=== PATIENT | female | born 1965 | race African-American/Black ===

== ENCOUNTER 2017-05-21 10:09 | Emergency (ER) | payer SELFPAY ==
[2017-05-21 11:45] LABS: INFLUENZA A PATIENT NEGATIVE (NEGATIVE)
[2017-05-21 11:50] LABS: INFLUENZA B PATIENT POSITIVE (NEGATIVE); OBC FLU VALID
[2017-05-21 12:02] LABS: BACTERIA,URINE 0 /HPF (0-FEW); BILIRUBIN,URINE NEGATIVE (NEG); CLARITY,URINE CLEAR; COLOR,URINE YELLOW; GLUCOSE,URINE NEGATIVE (NEG); NITRITE,URINE NEGATIVE (NEG); PROTEIN,URINE 30 mg/dL (NEG-TRACE); UROBILINOGEN,URINE 0.2 mg/dL (0.2 mg/dL); WBC,URINE 0 /HPF (0-4)
[2017-05-21 12:03] LABS: RBC,URINE RARE /HPF (0-2); SQUAMOUS EPITHELIAL CELL,UR MOD /LPF
== END 2017-05-21 12:22 | disposition home or self-care (01) ==
LOC: ER 10:09
DX: J10.1 Influenza due to other identified influenza virus with other respiratory manifestations (principal); Z88.1 Allergy status to other antibiotic agents
CPT/HCPCS: 81001; 87804; 87804-59; 99284

== ENCOUNTER 2019-03-09 12:13 | Emergency (ER) | payer SELFPAY ==
[~2019-03-09] VITALS: Ht 175.3 cm; Wt 72.6 kg
[~2019-03-09 12:13] MED LIST: ONDA4TAB10 SL; OSEL75CA PO
[2019-03-09] MEDS ORDERED: IV NORMAL SALINE 1000ML BAG 1,000 ML IV SCH (12:25)
--- NOTE | 2019-03-09 12:31 | PHYS DOC ---
Past Medical History Past Medical History: No Pertinent History Past Surgical History: No Surgical History Smoking: Cigarettes Alcohol Use: None Drug Use: None Adult General Chief Complaint Chief Complaint: MULTIPLE COMPLAINTS HPI HPI Patient is a 53-year-old female who presents to the emergency department for evaluation of multiple medical complaints. She states that yesterday evening she began having some spasm and pain in her right hand and could not move her hand due to the pain. She states that today she awakened in her entire right side of her body was hurting. She states the pain is in her right hip, leg, arm, and she has a generalized headache. She also has some sharp anterior chest pain which is worse with movement and palpation. She denies any pleuritic pain. She is somewhat tearful, and admits to being under a lot of stress related to family issues. She has not had any exertional chest pain or pleuritic pain. She denies any dizziness or lightheadedness, numbness or focal weakness. There are no alleviating or exacerbating factors to her symptoms. Review of Systems Review of Systems Constitutional: Denies fever or chills [] Eyes: Denies change in visual acuity, redness, or eye pain [] HENT: Denies nasal congestion or sore throat [] Respiratory: Denies cough or shortness of breath [] Cardiovascular: No additional information not addressed in HPI [] GI: Denies abdominal pain, nausea, vomiting, bloody stools or diarrhea [] : Denies dysuria or hematuria [] Musculoskeletal: Denies back pain or joint pain, other than as noted in the history of present illness [] Integument: Denies rash or skin lesions [] Neurologic: Denies focal weakness or sensory changes [] Endocrine: Denies polyuria or polydipsia [] All other systems were reviewed and found to be within normal limits, except as documented in this note. Current Medications Current Medications Current Medications Medications (Trade) Dose Ordered Sig/Yolande Start Time Stop Time Status Last Admin Dose Admin Aspirin (Children'S Aspirin) 324 mg 1X ONCE 03/09/19 13:00 03/09/19 13:01 DC 03/09/19 12:52 324 MG Iohexol (Omnipaque 350 Mg/ml) 100 ml 1X ONCE 03/09/19 13:30 03/09/19 13:31 DC 03/09/19 13:32 100 ML Lorazepam (Ativan Inj) 1 mg 1X ONCE 03/09/19 13:00 03/09/19 13:01 DC 03/09/19 12:52 1 MG Sodium Chloride 1,000 ml @ 1,000 mls/hr Q1H 03/09/19 12:25 03/09/19 13:24 DC 03/09/19 12:51 1,000 MLS/HR Allergies Allergies Allergies Coded Allergies Type Severity Reaction Last Updated Verified amoxicillin Allergy Intermediate Hives 05/21/17 Yes Physical Exam Physical Exam PHYSICAL EXAM: CONSTITUTIONAL: Well developed, well nourished HEAD: normocephalic, atraumatic EENT: PERRL, EOMI. Conjunctivae normal color, sclerae non-icteric; moist mucous membranes. NECK: Supple, non-tender; no meningismus. LUNGS: Lungs CTA, breathing even and unlabored. Normal air movement. HEART: Regular rate and rhythm, no murmur CHEST: No deformity. Palpation of the anterior chest wall reproduces the patient's pain. ABDOMEN: The abdomen is soft, and non-tender, no masses or bruits. EXTREM: Normal ROM; no deformity, no calf tenderness. Normal pulses palpable in all extremities. There is no pedal edema. SKIN: No rash; no diaphoresis NEURO: Alert; normal speech and cognition; CN's grossly intact; strength grossly intact without focal deficit. Ewwxry-qvtt-fwxhrh and heel zee testing is normal. Visual armstrong are intact by confrontation. BACK: No CVA TTP. PSYCHIATRIC: The patient is tearful, exhibits a moderately anxious affect. Current Patient Data Vital Signs Vital Signs Date Time Temp Pulse Resp B/P (MAP) Pulse Ox O2 Delivery O2 Flow Rate FiO2 03/09/19 12:20 98.6 93 17 143/92 (109) 96 98.6 Lab Values Laboratory Tests Test 03/09/19 12:33 White Blood Count 4.5 x10^3/uL (4.0-11.0) Red Blood Count 3.84 x10^6/uL (3.50-5.40) Hemoglobin 12.8 g/dL (12.0-15.5) Hematocrit 37.1 % (36.0-47.0) Mean Corpuscular Volume 97 fL (79-100) Mean Corpuscular Hemoglobin 33 pg (25-35) Mean Corpuscular Hemoglobin Concent 35 g/dL (31-37) Red Cell Distribution Width 14.1 % (11.5-14.5) Platelet Count 254 x10^3/uL (140-400) Neutrophils (%) (Auto) 47 % (31-73) Lymphocytes (%) (Auto) 44 % (24-48) Monocytes (%) (Auto) 7 % (0-9) Eosinophils (%) (Auto) 1 % (0-3) Basophils (%) (Auto) 1 % (0-3) Neutrophils # (Auto) 2.1 x10^3/uL (1.8-7.7) Lymphocytes # (Auto) 2.0 x10^3/uL (1.0-4.8) Monocytes # (Auto) 0.3 x10^3/uL (0.0-1.1) Eosinophils # (Auto) 0.1 x10^3/uL (0.0-0.7) Basophils # (Auto) 0.0 x10^3/uL (0.0-0.2) Erythrocyte Sedimentation Rate 27 (0-25) H Prothrombin Time 13.4 SEC (11.7-14.0) Prothrombin Time INR 1.1 (0.8-1.1) D-Dimer (Jazmin) 0.94 ug/mlFEU (0.00-0.50) H Sodium Level 138 mmol/L (136-145) Potassium Level 4.3 mmol/L (3.5-5.1) Chloride Level 102 mmol/L (98-107) Carbon Dioxide Level 24 mmol/L (21-32) Anion Gap 12 (6-14) Blood Urea Nitrogen 13 mg/dL (7-20) Creatinine 1.0 mg/dL (0.6-1.0) Estimated GFR (Cockcroft-Gault) 70.7 BUN/Creatinine Ratio 13 (6-20) Glucose Level 85 mg/dL (70-99) Calcium Level 9.6 mg/dL (8.5-10.1) Magnesium Level 1.8 mg/dL (1.8-2.4) Total Bilirubin 0.3 mg/dL (0.2-1.0) Aspartate Amino Transferase (AST) 17 U/L (15-37) Alanine Aminotransferase (ALT) 9 U/L (14-59) L Alkaline Phosphatase 76 U/L (46-116) Troponin I Quantitative < 0.017 ng/mL (0.000-0.055) C-Reactive Protein, Quantitative Pending XK-Qah-V-Type Natriuretic Peptide 11 pg/mL (0-124) Total Protein 8.7 g/dL (6.4-8.2) H Albumin 4.3 g/dL (3.4-5.0) Albumin/Globulin Ratio 1.0 (1.0-1.7) Lipase 184 U/L (73-393) Thyroid Stimulating Hormone (TSH) 0.438 uIU/mL (0.358-3.74) Laboratory Tests 03/09/19 12:33 Laboratory Tests 03/09/19 12:33 EKG EKG []Normal sinus rhythm at a rate of 80 beats for minute, normal axis, normal intervals, there are no acute ischemic ST/T changes. Radiology/Procedures Radiology/Procedures PROCEDURE: PORTABLE CHEST 1V EXAM: Chest, single view. HISTORY: Chest pain. COMPARISON: None. FINDINGS: A frontal view of the chest is obtained. There is no infiltrate, pleural effusion or pneumothorax. There is a prominent cardiac silhouette, a component of which is likely due to portable technique. IMPRESSION: No acute pulmonary finding. [] PROCEDURE: CT HEAD WO CONTRAST CT HEAD WO CONTRAST Indication: Headache. Exposure: One or more of the following individualized dose reduction techniques were utilized for this examination: 1. Automated exposure control 2. Adjustment of the mA and/or kV according to patient size 3. Use of iterative reconstruction technique. Technique: Standard imaging without intravenous contrast. No evidence of acute intracranial hemorrhage, mass effect, midline shift or abnormal extra-axial fluid collection. Freitas-white matter distinction is intact. Ventricles and sulci appear unremarkable. The partially visualized sinuses are clear. Mastoids and auditory canals are grossly clear. No evidence of acute skull abnormality. No large scalp hematoma. Orbits appear unremarkable. IMPRESSION: No evidence of acute intracranial hemorrhage or mass effect. If headaches persist, consider outpatient MR brain. PROCEDURE: CT ANGIOGRAPHY CHEST CT angiography chest with contrast PQRS statement: CT scans at this facility use dose reduction including either automated exposure control, iterative reconstructions, and /or weight based radiation dosing via mA and kV modification when appropriate to reduce radiation dose to as low as reasonably achievable. HISTORY: Chest pain, elevated d-dimer. TECHNIQUE: Helical CT imaging the chest with 3-D MIP reconstructions of the pulmonary arteries to assess for emboli with 90 mL Omnipaque 350 intravenous contrast. FINDINGS: No pulmonary artery emboli. Heart size normal. Thoracic aorta and esophagus are unremarkable. No adenopathy in the chest. No pulmonary opacities or nodules. No pleural effusions. Thin linear discoid atelectasis right middle lobe. Thoracic scoliosis. IMPRESSION: No acute process. No pulmonary artery emboli. Course & Med Decision Making Course & Med Decision Making Pertinent Labs and Imaging studies reviewed. (See chart for details) []2:50 PM: The patient's condition remains stable. She is feeling better at this time and she is ambulatory. She does complain of some right lateral thigh pain at this time, she has no medial pain, and her symptoms are not highly suggestive of a DVT, she has no calf tenderness, or significant edema noted. Her pain is consistent with musculoskeletal pain. I discussed overnight observation for more definitive cardiac or neurological evaluation, clinical suspicion of which is extremely low, but the patient declined this time. The importance of close follow-up was discussed in detail. I discussed the use of heat, NSAIDs, and return precautions were also explicitly discussed. Dragon Disclaimer Dragon Disclaimer This electronic medical record was generated, in whole or in part, using a voice recognition dictation system. Departure Departure Impression: Primary Impression: Musculoskeletal leg pain Additional Impression: Atypical chest pain Disposition: 01 HOME, SELF-CARE Condition: STABLE Referrals: RADHA VILLELA MD (PCP) Patient Instructions: Chest Pain (Nonspecific), Musculoskeletal Pain Additional Instructions: Ibuprofen 400-600 mg every 6 hours may help improve your symptoms. Applying a heating pad to the affected area may help improve your symptoms. Pepcid AC twice daily, as well as taking ibuprofen with food, may help improve or prevent stomach problems for pain which might be exacerbated by taking ibuprofen. Problem Qualifiers NAOMY CHILDRESS MD Mar 09, 2019 12:31
[2019-03-09 12:52] LABS: PROTHROMBIN TIME PATIENT 13.4 SEC (11.7-14.0)
[2019-03-09 12:58] LABS: BASO % 1 % (0-3); EOS # 0.1 x10^3/uL (0.0-0.7); EOS % 1 % (0-3); HEMATOCRIT 37.1 % (36.0-47.0); HEMOGLOBIN 12.8 g/dL (12.0-15.5); LYMPH % 44 % (24-48); MEAN CORPUSCULAR HEMOGLOBIN 33 pg (25-35); MEAN CORPUSCULAR HGB CONC 35 g/dL (31-37); MEAN CORPUSCULAR VOLUME 97 fL (79-100); MONO # 0.3 x10^3/uL (0.0-1.1); MONO % 7 % (0-9); NEUT # 2.1 x10^3/uL (1.8-7.7); NEUT % 47 % (31-73); PLATELET COUNT 254 x10^3/uL (140-400); RED BLOOD COUNT 3.84 x10^6/uL (3.50-5.40); RED CELL DISTRIBUTION WIDTH 14.1 % (11.5-14.5); WHITE BLOOD COUNT 4.5 x10^3/uL (4.0-11.0)
[2019-03-09 12:59] LABS: ANION GAP 12 (6-14); BLOOD UREA NITROGEN 13 mg/dL (7-20); BUN/CREATININE RATIO 13 (6-20); CALCIUM 9.6 mg/dL (8.5-10.1); CARBON DIOXIDE 24 mmol/L (21-32); CHLORIDE 102 mmol/L (98-107); GFR 70.7; GLUCOSE 85 mg/dL (70-99); POTASSIUM 4.3 mmol/L (3.5-5.1); SODIUM 138 mmol/L (136-145)
[2019-03-09] MEDS ORDERED: ASPIRIN CHEWABLE 81 MG TABLET. PO ONE (13:00)
--- NOTE | 2019-03-09 13:01 | RAD ---
CT HEAD WO CONTRAST Indication: Headache. Exposure: One or more of the following individualized dose reduction techniques were utilized for this examination: 1. Automated exposure control 2. Adjustment of the mA and/or kV according to patient size 3. Use of iterative reconstruction technique. Technique: Standard imaging without intravenous contrast. No evidence of acute intracranial hemorrhage, mass effect, midline shift or abnormal extra-axial fluid collection. Freitas-white matter distinction is intact. Ventricles and sulci appear unremarkable. The partially visualized sinuses are clear. Mastoids and auditory canals are grossly clear. No evidence of acute skull abnormality. No large scalp hematoma. Orbits appear unremarkable. IMPRESSION: No evidence of acute intracranial hemorrhage or mass effect. If headaches persist, consider outpatient MR brain. Electronically signed by: Harsh Nicholson MD (03/09/2019 12:58 PM) [id number]
[2019-03-09 13:02] LABS: D-DIMER 0.94 ug/mlFEU (0.00-0.50)
[2019-03-09 13:03] LABS: ALBUMIN 4.3 g/dL (3.4-5.0); ALK PHOS 76 U/L (46-116); ALT (SGPT) 9 U/L (14-59); AST (SGOT) 17 U/L (15-37); LIPASE 184 U/L (73-393); MAGNESIUM 1.8 mg/dL (1.8-2.4); TOTAL BILIRUBIN 0.3 mg/dL (0.2-1.0); TOTAL PROTEIN 8.7 g/dL (6.4-8.2)
--- NOTE | 2019-03-09 13:03 | RAD ---
EXAM: Chest, single view. HISTORY: Chest pain. COMPARISON: None. FINDINGS: A frontal view of the chest is obtained. There is no infiltrate, pleural effusion or pneumothorax. There is a prominent cardiac silhouette, a component of which is likely due to portable technique. IMPRESSION: No acute pulmonary finding. Electronically signed by: Kirti Zapien MD (03/09/2019 1:00 PM) [id number]
[2019-03-09] MEDS ORDERED: IOHEXOL 350 MG/ML 100 ML VIAL. IV ONE (13:30)
--- NOTE | 2019-03-09 13:58 | RAD ---
CT angiography chest with contrast PQRS statement: CT scans at this facility use dose reduction including either automated exposure control, iterative reconstructions, and /or weight based radiation dosing via mA and kV modification when appropriate to reduce radiation dose to as low as reasonably achievable. HISTORY: Chest pain, elevated d-dimer. TECHNIQUE: Helical CT imaging the chest with 3-D MIP reconstructions of the pulmonary arteries to assess for emboli with 90 mL Omnipaque 350 intravenous contrast. FINDINGS: No pulmonary artery emboli. Heart size normal. Thoracic aorta and esophagus are unremarkable. No adenopathy in the chest. No pulmonary opacities or nodules. No pleural effusions. Thin linear discoid atelectasis right middle lobe. Thoracic scoliosis. IMPRESSION: No acute process. No pulmonary artery emboli. Electronically signed by: Tito Gill MD (03/09/2019 1:55 PM) [facility]
--- NOTE | 2019-03-09 14:16 | EKG ---
[facility] [address] [place] [address] Test Date: 2019-03-09 Test Time: 12:22:50 Pat Name: KAMI CONNELLY Department: Room: Gender: F Front Office Attendant: : 1965 Requested By: NAOMY CHILDRESS Order Number: [id number] Reading MD: Bret Junior MD Measurements Intervals Pyote Rate: 87 P: 66 AL: 114 QRS: 28 QRSD: 76 T: 33 QT: 340 QTc: 414 Interpretive Statements SINUS RHYTHM NON-SPECIFIC ST/T CHANGES Electronically Signed On 03-09-2019 15:14:05 SUPPLY CHAIN LOGISTICS MANAGER by Bret Junior MD
[2019-03-09 14:40] VITALS: BP 107/63
[2019-03-09 16:40] LABS: C-REACTIVE PROTEIN < 0.5 mg/L (0-3.3)
== END 2019-03-09 15:05 | disposition home or self-care (01) ==
LOC: ER 12:13
DX: R07.89 Other chest pain (principal); M79.604 Pain in right leg; R51 Headache; M79.641 Pain in right hand; M25.551 Pain in right hip; F17.210 Nicotine dependence, cigarettes, uncomplicated; Z88.1 Allergy status to other antibiotic agents
CPT/HCPCS: 36415; 70450; 71045; 71275; 80053; 83690; 83735; 83880; 84443; 84484; 85025; 85379; 85610; 85651; 86140; 93005; 96374; 99285; J2060; J7030; Q9967

== ENCOUNTER 2020-05-22 13:39 | Emergency (ER) | payer SELFPAY ==
[~2020-05-22] VITALS: Ht 175.3 cm; Wt 72.0 kg
[2020-05-22 14:00] VITALS: BP 104/69
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
== END 2020-05-22 14:25 | disposition left against medical advice (07) ==
LOC: ER 13:39
DX: L25.9 Unspecified contact dermatitis, unspecified cause (principal); F17.200 Nicotine dependence, unspecified, uncomplicated; Z88.1 Allergy status to other antibiotic agents
CPT/HCPCS: 99281

== ENCOUNTER 2021-07-01 16:32 | Emergency (ER) | payer MEDICAID ==
[~2021-07-01] VITALS: Ht 175.3 cm; Wt 75.9 kg
--- NOTE | 2021-07-01 16:57 | PHYS DOC ---
Past Medical History Past Medical History: No Pertinent History Past Surgical History: No Surgical History Smoking Status: Current Every Day Smoker Alcohol Use: None Drug Use: None General Adult EDM: Chief Complaint: NAUSEA/VOMITING/DIARRHEA HPI: HPI: Patient is a 56 year old female who presents with went to [facility] and then became very nauseated with left-sided abdominal cramping. She rates her pain a 10 out of 10. Patient states she was fine before she went to [facility]. History of smoking. Review of Systems: Review of Systems: Constitutional: Denies fever or chills. [] Eyes: Denies change in visual acuity. [] HENT: Denies nasal congestion or sore throat. [] Respiratory: Denies cough or shortness of breath. [] Cardiovascular: Denies chest pain or edema. [] GI: +abdominal pain, +nausea, +vomiting, denies bloody stools or diarrhea. [] : Denies dysuria. [] Musculoskeletal: Denies back pain or joint pain. [] Integument: Denies rash. [] Neurologic: Denies headache, focal weakness or sensory changes. [] Endocrine: Denies polyuria or polydipsia. [] Lymphatic: Denies swollen glands. [] Psychiatric: Denies depression or anxiety. [] Heart Score: C/O Chest Pain: No Current Medications: Current Medications Medications (Trade) Dose Ordered Sig/Yolande Start Time Stop Time Status Last Admin Dose Admin Famotidine (Pepcid Vial) 20 mg 1X ONCE 07/01/21 17:00 07/01/21 17:01 UNV Fentanyl Citrate (Fentanyl 2ml Vial) 50 mcg 1X ONCE 07/01/21 17:00 07/01/21 17:01 UNV Ondansetron HCl (Zofran) 4 mg 1X ONCE 07/01/21 17:00 07/01/21 17:01 UNV Sodium Chloride 1,000 ml @ 1,000 mls/hr Q1H 07/01/21 17:00 07/01/21 17:59 UNV Allergies: Allergies: Allergies Coded Allergies Type Severity Reaction Last Updated Verified amoxicillin Allergy Intermediate Hives 05/21/17 Yes Physical Exam: PE: Constitutional: Well developed, well nourished, no acute distress, non-toxic appearance. [] HENT: Normocephalic, atraumatic, bilateral external ears normal, oropharynx moist, no oral exudates, nose normal. [] Eyes: PERRLA, EOMI, conjunctiva normal, no discharge. [] Neck: Normal range of motion, no tenderness, supple, no stridor. [] Cardiovascular:Heart rate regular rhythm, no murmur [] Lungs & Thorax: Bilateral breath sounds clear to auscultation [] Abdomen: Bowel sounds normal, soft, left mid to lower tenderness, no masses, no pulsatile masses. [] Skin: Warm, dry, no erythema, no rash. [] Back: No tenderness, no CVA tenderness. [] Extremities: No tenderness, no cyanosis, no clubbing, ROM intact, no edema. [] Neurologic: Alert and oriented X 3, normal motor function, normal sensory function, no focal deficits noted. [] Psychologic: Affect normal, judgement normal, mood normal. [] EKG: EK and read by Dr. Eubanks is a sinus rhythm with a inverted T waves in lead III. No STEMI. Radiology/Procedures: Radiology/Procedures: [] Impression: [facility] [address] [place] [address] IMAGING REPORT Signed PATIENT: KAMI CONNELLY ACCOUNT: [id number] : 1965 LOCATION: ER AGE: 56 SEX: F EXAM STATUS: REG ER ORD. PHYSICIAN: DORINDA CAI APRN REASON: LEFT SIDED ABD PAIN WITH VOMITING PROCEDURE: CT ABD PELV W/ IV CONTRST ONLY Exam: CT of abdomen and pelvis with contrast INDICATION: Left-sided abdominal pain with vomiting TECHNIQUE: Sequential axial images through the abdomen and pelvis obtained following the administration of 75 mL of Omni 300 IV contrast. Sagittal and coronal reformatted images were reconstructed from the axial data and reviewed. Exposure: One or more of the following in the visualized dose reduction techniques were utilized for this examination: 1. Automated exposure control 2. Adjustment of the MA and/or KV according to patient size 3. Use of iterative of reconstructive technique Comparisons: None FINDINGS: Heart size is normal. No pericardial effusion. Visualized lung bases are clear. No pleural effusion. Liver, spleen, pancreas, gallbladder and adrenals are unremarkable. No perinephric inflammation or hydronephrosis. No renal or ureteral calculi are identified. Bladder is partially distended and not well evaluated. Uterus is not enlarged. No abnormal adnexal mass. Large and small bowel are unremarkable. Appendix is normal. No free intra- abdominal air or fluid. No obstruction. Abdominal aorta has a normal course and caliber. Abdominal vasculature is patent. No enlarged intra-abdominal lymph nodes are identified. No suspicious osseous lesions or acute fractures. IMPRESSION: No acute process identified within the abdomen or pelvis. Electronically signed by: Xiomy Polo MD (07/01/2021 8:06 PM) [facility] DICTATED and SIGNED BY: XIOMY POLO MD DATE: 07/01/212000 Course & Med Decision Making: Course & Med Decision Making Pertinent Labs and Imaging studies reviewed. (See chart for details) See HPI. Alert and oriented x4. Ambulatory steady gait. Abdomen is soft but tender to the left mid to lower side. Speaks in full clear sentences. She is holding her abdomen and moaning. Skin pink warm and dry. Patient is positive for marijuana. Blood work is unremarkable. Patient has had a total of 100MCG f entanyl IV, 10 mg Bentyl IM, 2 mg morphine IV, 2 normal saline bolus, 8 mg Zofran, 25 mg of Phenergan per rectum, 20 mg Pepcid IV. Patient still complains of pain and nausea. CT abdomen pelvis shows no acute findings. Patient was given another 2 mg of morphine. Patient is still moaning and rolling around in the bed after all the medications were given. Patient urine drug screen came back positive for marijuana. She will be given 2.5 of Haldol IV. Rapid influenza and Covid are negative. Nurse let me know that patient began having hives going up her arm after the second dose of morphine was given. I ordered some Benadryl p.o. with a sip of water, this way I can also p.o. challenge her at the same time. Patient states she is feeling better. Patient was successfully p.o. challenge. She will be sent home with return precautions. [] Trinity Disclaimer: Trinity Disclaimer: This electronic medical record was generated, in whole or in part, using a voice recognition dictation system. Departure Departure Impression: Primary Impression: Nausea & vomiting Qualified Codes: R11.2 - Nausea with vomiting, unspecified Additional Impressions: Abdominal pain Qualified Codes: R10.84 - Generalized abdominal pain Marijuana use Disposition: 01 HOME / SELF CARE / HOMELESS Condition: STABLE Referrals: NO PCP (PCP) CABRERA BLACKMON MD Patient Instructions: Marijuana Abuse and Chemical Dependency, Nausea and Vomiting Additional Instructions: Follow-up with your primary care provider. Drink plenty of fluids. Stop using marijuana. If you any point you are not able to keep down any fluids return to the emergency room. DORINDA CAI PRODUCTION SUPPORT CONSULTANT Jul 01, 2021 16:57
[2021-07-01] MEDS ORDERED: fentaNYL PF VIAL 100 MCG/2 ML VIAL ONE (16:59)
[2021-07-01] MEDS ORDERED: ONDANSETRON PF 4 MG/2 ML VIAL. IVP ONE ×2 (17:00→17:45)
[2021-07-01] MEDS ORDERED: FAMOTIDINE 20 MG/2 ML VIAL IVP ONE (17:00)
[2021-07-01] MEDS ORDERED: fentaNYL PF VIAL 100 MCG/2 ML VIAL IVP ONE ×2 (17:00→17:45)
[2021-07-01] MEDS ORDERED: IV NORMAL SALINE 1000ML BAG 1,000 ML IV SCH (17:00)
[2021-07-01] MEDS ORDERED: IOHEXOL 300 MG/ML 100ML VIAL. IV ONE (17:15)
[2021-07-01 17:55] VITALS: BP 167/88
[2021-07-01 18:15] LABS: BASO # 0.1 x10^3/uL (0.0-0.2); BASO % 1 % (0-3); EOS % 0 % (0-3); HEMATOCRIT 33.8 % (36.0-47.0); HEMOGLOBIN 11.2 g/dL (12.0-15.5); LYMPH # 0.9 x10^3/uL (1.0-4.8); LYMPH % 11 % (24-48); MEAN CORPUSCULAR HEMOGLOBIN 31 pg (25-35); MEAN CORPUSCULAR HGB CONC 33 g/dL (31-37); MEAN CORPUSCULAR VOLUME 95 fL (79-100); MONO # 0.3 x10^3/uL (0.0-1.1); MONO % 4 % (0-9); NEUT # 7.2 x10^3/uL (1.8-7.7); NEUT % 84 % (31-73); PLATELET COUNT 298 x10^3/uL (140-400); RED BLOOD COUNT 3.58 x10^6/uL (3.50-5.40); RED CELL DISTRIBUTION WIDTH 16.1 % (11.5-14.5); WHITE BLOOD COUNT 8.6 x10^3/uL (4.0-11.0)
[2021-07-01] MEDS ORDERED: MORPHINE SULFATE 2 MG/ML INJ. IVP ONE ×2 (18:30→20:00)
[2021-07-01] MEDS ORDERED: DICYCLOMINE 20 MG/2 ML VIAL. IM ONE (18:30)
[2021-07-01] MEDS ORDERED: PROMETHAZINE 25 MG SUPP.RECT. PR ONE (18:30)
[2021-07-01 18:32] LABS: CALCIUM 9.5 mg/dL (8.5-10.1); CREATININE 0.9 mg/dL (0.6-1.0); POTASSIUM 3.8 mmol/L (3.5-5.1)
[2021-07-01 18:41] LABS: ALBUMIN 4.2 g/dL (3.4-5.0); ALBUMIN/GLOBULIN RATIO 1.2 (1.0-1.7); TOTAL BILIRUBIN 0.2 mg/dL (0.2-1.0); TOTAL PROTEIN 7.8 g/dL (6.4-8.2)
--- NOTE | 2021-07-01 18:44 | EKG ---
[facility] [address] [place] [address] Test Date: 2021-07-01 Test Time: 17:13:06 Pat Name: KAMI CONNELLY Department: Room: Gender: F Content Writer: : 1965 Requested By: DORINDA CAI Order Number: [id number] Reading MD: Higinio Camarena Measurements Intervals [place] Rate: 67 P: 56 NV: 124 QRS: 1 QRSD: 84 T: 15 QT: 402 QTc: 428 Interpretive Statements SINUS RHYTHM LEFT ATRIAL ABNORMALITY Electronically Signed On 07-14-2021 21:58:41 CDT by Higinio Camarena
[2021-07-01] MEDS ORDERED: IV NORMAL SALINE 1000ML BAG 1,000 ML IV ONE (19:00)
[2021-07-01 19:25] LABS: BILIRUBIN,URINE NEGATIVE (NEG); CLARITY,URINE CLEAR; COLOR,URINE STRAW; NITRITE,URINE NEGATIVE (NEG); PH,URINE >8.5 (<5.0-8.0); PROTEIN,URINE NEGATIVE (NEG-TRACE); UROBILINOGEN,URINE 0.2 mg/dL (0.2 mg/dL)
[2021-07-01 19:29] LABS: BACTERIA,URINE FEW /HPF (0-FEW); RBC,URINE 0 /HPF (0-2)
[2021-07-01 19:36] LABS: AMPHETAMINE/METHAMPHETAMINE NEG (NEG); BARBITURATES NEG (NEG); BENZODIAZEPINES NEG (NEG); CANNABINOIDS POS (NEG); COCAINE NEG (NEG); METHADONE NEG (NEG); OPIATES POS (NEG); PHENCYCLIDINE NEG (NEG)
[2021-07-01 19:47] LABS: INFLUENZA A PATIENT NEGATIVE (NEGATIVE); INFLUENZA B PATIENT NEGATIVE (NEGATIVE)
--- NOTE | 2021-07-01 20:09 | RAD ---
Exam: CT of abdomen and pelvis with contrast INDICATION: Left-sided abdominal pain with vomiting TECHNIQUE: Sequential axial images through the abdomen and pelvis obtained following the administrati on of 75 mL of Omni 300 IV contrast. Sagittal and coronal reformatted images were reconstructed from the axial data and reviewed. Exposure: One or more of the following in the visualized dose reduction techniques were utilized for this examination: 1. Automated exposure control 2. Adjustment of the MA and/or KV according to patient size 3. Use of iterative of reconstructive technique Comparisons: None FINDINGS: Heart size is normal. No pericardial effusion. Visualized lung bases are clear. No pleural effusion. Liver, spleen, pancreas, gallbladder and adrenals are unremarkable. No perinephric inflammation or hydronephrosis. No renal or ureteral calculi are identified. Bladder is partially distended and not well evaluated. Uterus is not enlarged. No abnormal adnexal ma ss. Large and small bowel are unremarkable. Appendix is normal. No free intra-abdominal air or fluid. No obstruction. Abdominal aorta has a normal course and caliber. Abdominal vasculature is patent. No enlarged intra-abdominal lymph nodes are identified. No suspicious osseous lesions or acute fractures. IMPRESSION: No acute process identified within the abdomen or pelvis. Electronically signed by: Xiomy Joe MD (07/01/2021 8:06 PM) [facility]
[2021-07-01] MEDS ORDERED: HALOPERIDOL LACTATE 5 MG/ML VIAL. IVP ONE (20:15)
[2021-07-01] MEDS ORDERED: methylPREDNISolone SOD SUCC PF 125 MG/2 ML VIAL. IV ONE (20:30)
[2021-07-01] MEDS ORDERED: diphenhydrAMINE HCL 25 MG CAPSULE PO ONE (20:30)
== END 2021-07-01 21:08 | disposition home or self-care (01) ==
LOC: ER 16:32
DX: R11.2 Nausea with vomiting, unspecified (principal); R10.84 Generalized abdominal pain; F12.90 Cannabis use, unspecified, uncomplicated; Z20.822 Contact with and (suspected) exposure to COVID-19; F17.200 Nicotine dependence, unspecified, uncomplicated; Z88.1 Allergy status to other antibiotic agents
CPT/HCPCS: 36415; 74177; 80053; 80307; 81001; 83690; 84484; 85025; 87428; 93005; 96361; 96372; 96374; 96375; 96376; 99285; J0500; J1630; J2270; J2405; J2930; J3010; J3490; J7030; Q0163; Q9967